=== PATIENT | female | born 1945 | race Caucasian/White ===

== ENCOUNTER 2018-12-29 06:00 | Inpatient (IN) | payer OTHER ==
[2018-12-17 12:47] LABS: URINE BILIRUBIN NEGATIVE (Negative); URINE BLOOD NEGATIVE (Negative); URINE CLARITY CLEAR; URINE COLOR YELLOW; URINE GLUCOSE-RANDOM* NEGATIVE (Negative); URINE KETONES NEGATIVE (Negative); URINE LEUKOCYTES-REFLEX NEGATIVE (Negative); URINE NITRITE-REFLEX NEGATIVE (Negative); URINE PROTEIN (DIPSTICK) NEGATIVE (Negative); URINE SPECIFIC GRAVITY <= 1.005 (1.005-1.035); URINE UROBILINOGEN 0.2 E.U./dl (0.2-1.0)
[2018-12-17 12:54] LABS: ALBUMIN 4.2 g/dL (3.4-5.0); CALCIUM 9.5 mg/dL (8.5-10.1); CREATININE 0.6 mg/dL (0.6-1.0); POTASSIUM 4.4 mmol/L (3.5-5.1)
[2018-12-17 13:00] LABS: PROTIME 10.4 Seconds (9.3-11.4)
[2018-12-17 13:24] LABS: HEMATOCRIT 37.5 % (37.0-47.0); HEMOGLOBIN 12.6 gm/dL (12.0-15.0); MCH 34.2 pg (26.0-34.0); MCHC 33.5 g/dL (28.0-37.0); MCV 102.3 fL (80.0-100.0); RBC 3.67 mil/uL (4.20-5.00); RDW 11.8 % (10.5-14.5); WBC 4.9 thou/uL (4.0-11.0)
--- NOTE | 2018-12-19 12:13 | EKG ---
[address] [address] ELECTROCARDIOGRAM REPORT Name: GERRY LOVETT Room #: PRE IN M..#: [id number] Admission: Attend Phys: Macario Shell MD Discharge: Date of : 41 Report #: [id number] THIS REPORT FOR: //name// [facility] Test Date: 2018-12-17 Test Time: 12:44:00 Pat Name: GERRY LOVETT Department: Room: Gender: [employer] Location Manager: shila : 1945 Requested By: Macario Shell Order Number: [id number] MD: Nitish Mei Measurements Intervals [place] Rate: 63 P: 36 DE: 165 QRS: -34 QRSD: 102 T: 28 QT: 428 QTc: 439 Interpretive Statements Sinus rhythm Left axis deviation No previous ECG available for comparison Electronically Signed On 12-19-2018 12:12:56 [employer] INST[employer] by Nitish Mei [email or web address] <ELECTRONICALLY SIGNED> By: Nitish Mei MD 12/19/18 1212 1244 1244 Nitish Mei MD /EPI
[~2018-12-29] VITALS: Ht 152.4 cm; Wt 74.4 kg
[~2018-12-29 06:00] MED LIST: BUPROPION XL300 MG PO; CALCIUM + VITA1 EACH PO; FLONASE 0.05%50 MCG NARES; GLUCOSAMINE &1 EACH PO; HYDROXYCHLOROQ200 M1 PO; LEXAPRO 10 MG T10 MG PO; MUPIROCIN15 GM TOP; ROSUVASTATIN CA20 MG PO; TRIAMCINOLONE A15 G1 TOP; TURMERIC500 M2 PO; VOLTAREN GEL 1100 GM TOP; ZESTRIL20 MG PO
[2018-12-29 07:23] VITALS: BP 134/67
--- NOTE | 2018-12-29 12:41 | NUR ---
PT ARRIVED TO UNIT AT 1100 ALERT XS4. NO PAIN OR RESP DISTRESS. AND DAUGHTER AT BEDSIDE. RIGHT KNEE WITH POLAR PACK AND PICCO DRESSING INTACT. GRABIEL SURESH AND SCD'S ON. ADMISSION PAPERWORK COMPLETED. DIET ORDER IN COMPUTER. PT DRINKING FLUIDS
[2018-12-29 15:31] VITALS: BP 118/64
[2018-12-29 21:23] VITALS: BP 131/61
[2018-12-30 01:01] VITALS: BP 137/66
--- NOTE | 2018-12-30 03:27 | NUR ---
Assumed pt care at 1900. Pt is A/OX4,VSS. Up with AX1,GB/RW to the bathroom without problems voiced, WBAT. Denies pain on assessment,polar pack in place. JANI dsg in place C/D/I. Fall precautions in place,calls approp. Dtr at the bedside for the night. Call light/personal items within reach.Will continue to monitor pt.
[2018-12-30 05:11] VITALS: BP 128/64
[2018-12-30 05:26] LABS: HEMATOCRIT 31.6 % (37.0-47.0); HEMOGLOBIN 10.6 gm/dL (12.0-15.0); MCH 34.1 pg (26.0-34.0); MCHC 33.5 g/dL (28.0-37.0); MCV 101.7 fL (80.0-100.0); RBC 3.11 mil/uL (4.20-5.00); RDW 11.7 % (10.5-14.5); WBC 7.9 thou/uL (4.0-11.0)
[2018-12-30 08:01] VITALS: BP 101/57
--- NOTE | 2018-12-30 10:17 | NUR ---
assessment-PT LIVES AT HOME WITH HER WHO WORKS A LOT AND BUILDS HANDICAPPED ACCESSIBLE HOMES. DTR HELPS WITH CLEANING. PT DOES COOKING AND LAUNDRY. THEY HAVE 3 CHILDREN IN THE AREA. PT HAS HER [facility]PT AP[facility] AT [facility] [place]. PT HAS A ROLLER WALKER AT HOME ALREADY. DTR AT BEDSIDE AND WILL ASSIST PT TODAY.
[2018-12-30] MEDS ORDERED: ASPIR 8181 MG PO (12:29)
[2018-12-30] MEDS ORDERED: NEURONTIN 300300 M1 PO (12:29)
--- NOTE | 2018-12-30 14:57 | O ---
[facility] [place] [address] OPERATIVE REPORT Name: GERRY LOVETT Room #: 438-P ADM IN M.R.#: [id number] Admission: 12/29/18 Attend Phys: Macario Shell MD Discharge: Date of : 41 Report #: [id number] THIS REPORT FOR: //name// CC: Maggie Varghesecarlosmarquita Macario Shell DATE OF SERVICE: 12/29/2018 PREOPERATIVE DIAGNOSIS: Right knee rheumatoid arthritis. POSTOPERATIVE DIAGNOSIS: Right knee rheumatoid arthritis. PROCEDURE: Right total knee arthroplasty using Navio robotic assistance. SURGEON: Macario Shell MD. PHYSICAL PLANT MANAGER: Duyen George PA-C. INDICATIONS FOR PHYSICAL PLANT MANAGER: Throughout the case, extensive retraction and manipulation of the knee was required. This was afforded to me by my assistant professor of anthropology. ANESTHESIA: LMA with an adductor canal block. IMPLANTS: [employer] size 5 narrow Legion cobalt chrome posterior stabilized femur, size 3 tibia, size 13 polyethylene and a size 32 patella. TOURNIQUET TIME: 50 minutes. ESTIMATED BLOOD LOSS: 25 mL. COMPLICATIONS: None. SPECIMENS: None. CONDITION UPON LEAVING THE OPERATING ROOM: Stable. INDICATIONS FOR PROCEDURE: The patient is a 73-year-old female with right knee rheumatoid arthritis. She had failed conservative measures for this and after discussion with her, she elected for right total knee arthroplasty. DESCRIPTION OF PROCEDURE: Risks, benefits, alternatives, complications were discussed in detail with the patient including, but not limited to risk of anesthesia, risk of damage to nerves, arteries, blood vessels, risk for infection, bleeding, risk for continued knee pain, need for reoperation. Informed consent was obtained from the patient. Right knee was appropriately marked in the preoperative holding area. Adductor canal block was placed by [facility] [address] [place] [address] OPERATIVE REPORT Name: GERRY LOVETT Room #: 438-P [facility] IN M.R.#: [id number] Admission: 12/29/18 Attend Phys: Macario Shell MD Discharge: Date of : 41 Report #: [id number] anesthesia. IV Ancef was given for preoperative antibiotics. She was brought to the operating room and placed in supine position on operating room table. LMA anesthesia was induced without complication. Tourniquet was placed on the right thigh. Right lower extremity was prepped and draped in normal sterile fashion. Timeout was performed properly identifying the patient and procedure as well as instrumentation. All in the operating room were in agreement. Right lower extremity was exsanguinated, tourniquet was inflated. Tourniquet time is 50 minutes. Standard midline approach to knee was made with 10 blade through the skin. Dissection was taken down sharply to the fascia and deep flaps were developed medially and laterally. Fresh 10-blade was used to make a medial parapatellar arthrotomy and the knee was inspected. There was severe medial and patellofemoral rheumatoid arthritis. Reference pins were placed in the femur and the tibia and the knee was then digitally mapped using the [employer] robotic system. We sized the size 5 femur and a size 3 tibia with an 11 spacer. After acceptance of the intraoperative plan, the distal femoral cut was made with a Navio matthias. The 4-in-1 cutting block was placed. Anterior, posterior and chamfer cuts were made on the femur. Attention was turned to the tibia. Remainder of the menisci removed with Bovie cautery. Tibial resection guide was pinned in place using the Navio for placement. After this, flexion and extension gaps were checked and found to have good balance in flexion and extension both medially and laterally. Tibia was sized, found to be a size 3. Size 3 tibial trial was placed, pinned and punched. Size 5 femoral trial was placed and the box cut was made. This was then trialed with an 11 and then a 12 polyethylene. The 12 polyethylene demonstrated good balance medially and laterally throughout range of motion about 2 mm of laxity and it was felt that we would end up with either a 12 or 13 poly after the final implant. After this, trial components were removed. Bony ends were thoroughly irrigated with normal saline. A final size 3 tibia, size 5 Legion cobalt chrome posterior stabilized femur and a size 32 patella were cemented in place using standard cementation techniques. While the cement cured, a periarticular injection consisting of morphine, ropivacaine, epinephrine, Toradol was placed around the knee joint capsule. After the cement cured, tourniquet was deflated. Hemostasis was obtained with Bovie cautery. The knee was then trialed with a 12 and then a 13 polyethylene. The 13 had a better fit and so a final 13 polyethylene was placed. A gram of vancomycin was placed deep in the joint. Fascia was closed with 0 Vicryl, skin was closed with 2-0 Vicryl, 3-0 Monocryl. Dermabond and a JANI dressing was applied. The patient tolerated this procedure well and went to recovery room under care of anesthesia postoperatively. <ELECTRONICALLY SIGNED> By: Macario Shell MD 12/30/18 1457 0942 1021 Macario Shell MD /nt
[2018-12-30 15:30] VITALS: BP 101/57
--- NOTE | 2018-12-30 16:15 | NUR ---
Assumed care of pt at 0700. Pt a&ox4. Pain controlled with prn pain meds. Polar pack in place. Family at bedside. Pt worked with physical therapy. Fall precautions in place. Discharging to home.
== END 2018-12-30 16:15 | disposition home or self-care (01) | DRG 470 ==
LOC: 4S 06:00 → TBA 06:00 → 4S 10:44 → PRE 11:52 → ENTRNSPT 12-30 16:12 → 4S 12-30 16:15
PROVIDERS: ADMIT Orthopaedic Surgery
PROC: 8E0Y0CZ Robotic Assisted Procedure of Lower Extremity, Open Approach (ICD-10-PCS; principal; 2018-12-29)
PROC: 0SRC0J9 Replacement of Right Knee Joint with Synthetic Substitute, Cemented, Open Approach (ICD-10-PCS; principal; 2018-12-29)
DX: M17.0 Bilateral primary osteoarthritis of knee (principal); M06.861 Other specified rheumatoid arthritis, right knee; G89.29 Other chronic pain; E78.00 Pure hypercholesterolemia, unspecified; M81.0 Age-related osteoporosis without current pathological fracture; F32.9 Major depressive disorder, single episode, unspecified; Z87.891 Personal history of nicotine dependence; Z79.899 Other long term (current) drug therapy; Z90.710 Acquired absence of both cervix and uterus; Z90.89 Acquired absence of other organs; Z88.8 Allergy status to other drugs, medicaments and biological substances; Z91.048 Other nonmedicinal substance allergy status; Z83.3 Family history of diabetes mellitus; Z81.8 Family history of other mental and behavioral disorders; Z82.5 Family history of asthma and other chronic lower respiratory diseases; Z84.89 Family history of other specified conditions
CPT/HCPCS: 10102; 50010; 50101; 50415; 50954; 51130; 51225; 51320; 52001; 52282; 53000; 53078; 53364; 54118; 56527; 56528; 57103; 57110; 57127; 57179; 62110; 62900; 64042; 70005

== ENCOUNTER 2019-01-04 12:01 | Inpatient (IN) | payer OTHER ==
[~2019-01-04] VITALS: Ht 162.6 cm; Wt 76.2 kg
[~2019-01-04 12:01] MED LIST changes: +ASPIR 8181 MG PO; +NEURONTIN 300300 M1 PO
[2019-01-04 12:02] VITALS: BP 105/54
[2019-01-04 12:49] LABS: BASOPHILS 1.3 % (0.0-2.0); EOSINOPHILS 3.6 % (0.0-3.0); HEMATOCRIT 28.1 % (37.0-47.0); HEMOGLOBIN 9.6 gm/dL (12.0-15.0); LYMPHOCYTES 13.7 % (24.0-44.0); MCH 34.3 pg (26.0-34.0); MCHC 34.2 g/dL (28.0-37.0); MCV 100.2 fL (80.0-100.0); MONOCYTES 8.8 % (1.0-8.0); PLATELET COUNT 268 thou/uL (150-400); POLYS 72.6 % (36.0-66.0); RBC 2.81 mil/uL (4.20-5.00); RDW 11.8 % (10.5-14.5); WBC 5.5 thou/uL (4.0-11.0)
[2019-01-04 12:58] LABS: CREATININE 0.7 mg/dL (0.6-1.0); POTASSIUM 3.4 mmol/L (3.5-5.1)
[2019-01-04] MEDS ORDERED: MS CONTIN15 MG PO (13:26)
[2019-01-04] MEDS ORDERED: PERCOCET 5-3251 EACH PO (13:26)
[2019-01-04 13:38] VITALS: BP 109/53
[2019-01-04 14:18] VITALS: BP 102/50
--- NOTE | 2019-01-04 15:00 | H ---
[facility] [place] [address] HISTORY AND PHYSICAL Name: GERRY LOVETT Room #: 456-P ADM IN M.R.#: [id number] Admission: 01/04/19 Attend Phys: Nickolas Alvarez MD Discharge: Date of : 41 Report #: [id number] THIS REPORT FOR: //name// CC: [facility] physician/PCP Nickolas Alvarez CHIEF COMPLAINT: Painful and weak right total knee arthroplasty and fever, nausea and vomiting. HISTORY OF PRESENT ILLNESS: This frail, but healthy 73-year-old female underwent right total knee arthroplasty 6 days ago. At that time, she did quite nicely. She had minimal pain. She was able to advance activity and had started ambulation with a walker and was making good progress. She was discharged home on routine medications and seemed to have no problems. Over the past 4 days, she has had more significant problems with some generalized pain and swelling about the knee and thigh. She also has some weakness with dorsiflexion of the right foot. She also has had some abdominal distress with nausea and vomiting and some upper respiratory congestion with what she describes as occasional sputum production. She notes she has had an occasional fever of 101. She called me today describing some of the symptoms and I suggested follow up in the Emergency Department with probable hospital readmission for evaluation. Her previous medical history and family history are noncontributory. Today at the time of my evaluation, she is alert and oriented and does not seem to be in significant discomfort. Her temperature is 99 and her O2 sats are 95-100 and she seems to have no problem with shortness of breath or cough or sputum production at this time. She is not having any nausea. She has no complaints of discomfort involving the neck, back or upper extremities and seems to have full and normal movement in those areas. The right lower extremity is in a nicely placed dressing, which was removed. The JANI dressing against the skin appears to be clean and dry and the surrounding skin is not particularly warm nor significantly erythematous. I feel she probably does have a very minimal knee effusion, but demonstrates satisfactory movement with only mild discomfort. The knee seems to be functioning well and my objective assessment is that it is unlikely there is any infection nor any other significant problems. The findings are most consistent with simple normal postoperative inflammation. There is some generalized bruising about the thigh, probably related to the tourniquet. The calf is not bruised nor significantly tender. There is some minor edema down to the foot and ankle. She has difficulty with dorsiflexion of the foot and ankle suggesting a peroneal nerve palsy. Vascular status appears to be intact. The opposite left lower extremity reveals only minor ankle and foot edema, but no other significant abnormality. Her lab studies are notable for a white count of 5500. Her other labs are [address] [address] HISTORY AND PHYSICAL Name: GERRY LOVETT Room #: 456-P ADM IN M.R.#: [id number] Admission: 01/04/19 Attend Phys: Nickolas Alvarez MD Discharge: Date of : 41 Report #: [id number] essentially normal. Her sed rate is pending at the time of this dictation. She did have an ultrasound study of the right calf, which reveals no evidence of DVT. Chest x-ray reveals mild atelectasis in the right mid lung. X-rays of the right knee reveal good position of total knee components which appear to be stable and well seated. In summary, I am uncertain why she feels poorly in general and weak in general. I am concerned she may have atelectasis or pneumonitis which may be her primary issue. She seems to have some GI irritability, but no abdominal tenderness and nothing which would suggest ileus or significant abdominal problems. The right knee is only mildly puffy and is not particularly inflamed or red. It seems unlikely to me that she has an infection, although we have discussed this issue at some length. I have also discussed the issue with Dr. Shell, her primary surgeon. We both agreed that the best approach is probably to go ahead with hospital admission and careful observation for 24 hours. I think we will see whether her pulmonary issues are more significant. I do not think she needs an antibiotic at this time with regard to the knee and did not find enough evidence of a significant knee effusion to warrant knee aspiration. I will defer to Dr. Shell when he sees her either later tonight or tomorrow. I think we can proceed with therapy and activity and we will see whether we are making sufficient progress to allow outpatient management or not. <ELECTRONICALLY SIGNED> By: Yared Mercedes MD 01/04/19 1500 1450 1500 Yared Mercedes MD /nt
[2019-01-04 16:16] VITALS: BP 120/50
[2019-01-04 19:33] VITALS: BP 108/57
[2019-01-05 00:35] VITALS: BP 108/57
[2019-01-05 05:05] LABS: HEMATOCRIT 24.8 % (37.0-47.0); HEMOGLOBIN 8.6 gm/dL (12.0-15.0); MCH 34.8 pg (26.0-34.0); MCHC 34.6 g/dL (28.0-37.0); MCV 100.5 fL (80.0-100.0); RBC 2.47 mil/uL (4.20-5.00); RDW 11.9 % (10.5-14.5); WBC 5.2 thou/uL (4.0-11.0)
[2019-01-05 05:09] LABS: CALCIUM 8.9 mg/dL (8.5-10.1); CREATININE 0.6 mg/dL (0.6-1.0); POTASSIUM 3.8 mmol/L (3.5-5.1)
[2019-01-05 09:10] VITALS: BP 141/74
[2019-01-05 14:56] VITALS: BP 136/73
[2019-01-05 17:02] LABS: CALCIUM 8.9 mg/dL (8.5-10.1); CREATININE 0.6 mg/dL (0.6-1.0); POTASSIUM 3.9 mmol/L (3.5-5.1)
[2019-01-05 19:32] VITALS: BP 151/80
[2019-01-05 20:02] LABS: URINE BILIRUBIN NEGATIVE (Negative); URINE BLOOD NEGATIVE (Negative); URINE CLARITY CLEAR; URINE COLOR YELLOW; URINE GLUCOSE-RANDOM* NEGATIVE (Negative); URINE KETONES NEGATIVE (Negative); URINE LEUKOCYTES-REFLEX NEGATIVE (Negative); URINE NITRITE-REFLEX NEGATIVE (Negative); URINE PROTEIN (DIPSTICK) NEGATIVE (Negative); URINE SPECIFIC GRAVITY 1.015 (1.005-1.035); URINE UROBILINOGEN 0.2 E.U./dl (0.2-1.0)
[2019-01-06 06:30] LABS: ALBUMIN 2.8 g/dL (3.4-5.0); CALCIUM 8.5 mg/dL (8.5-10.1); CREATININE 0.5 mg/dL (0.6-1.0); TOTAL BILIRUBIN 0.8 mg/dL (<0.1-1.0)
[2019-01-06 07:21] VITALS: BP 142/65
[2019-01-06 08:19] LABS: TSH 1.181 uIU/mL (0.358-3.740)
[2019-01-06] MEDS ORDERED: MOBIC15 MG PO ×2 (10:19→14:42)
[2019-01-06 13:47] VITALS: BP 142/65
--- NOTE | 2019-01-06 20:38 | HC ---
[facility] [place] [address] CONSULTATION Name: GERRY LOVETT Room #: 456-P [facility] IN ..#: [id number] Admission: 01/04/19 Attend Phys: Nickolas Alvarez MD Discharge: 01/06/19 Date of : 41 Report #: [id number] THIS REPORT FOR: //name// CC: [facility] physician/PCP Nickolas Alvarez DATE OF SERVICE: 01/05/2019 INFECTIOUS DISEASE CONSULTATION REASON FOR CONSULTATION: I was asked to evaluate concerning low-grade fever postop right total knee arthroplasty. HISTORY OF PRESENT ILLNESS: A 73-year-old with underlying history of rheumatoid arthritis, on Plaquenil, who underwent a right total knee arthroplasty one week ago. There were no intraoperative complications. Procedure was right total knee arthroplasty using Navio robotic assistance. Postoperatively, she has had a significant amount of swelling and increased pain. She developed footdrop. Developed a low-grade fever. She has had a cough with difficulty expectorating. No pleuritic chest pain. No chills or sweats. Because of her increased pain, immobility, and low-grade fever, she was hospitalized for further evaluation. REVIEW OF SYSTEMS: She has been constipated. No dysuria or frequency. No other rashes. No adenopathy. Other joints have been stable. REVIEW OF SYSTEMS: A 10-point review of system was negative other than what is described above. ALLERGIES: TYLENOL, TAPE, EMETICON. MEDICATIONS: Morphine, oxycodone, calcium carbonate, glucosamine, hydroxychloroquine, triamcinolone topical, Flonase nasal spray, lisinopril, bupropion, rosuvastatin, Lexapro, Voltaren cream, mupirocin topical, turmeric. PAST MEDICAL HISTORY: Hypertension, hyperlipidemia, depression and anxiety, obstructive sleep apnea, hiatal hernia, gastroesophageal reflux, tonsillectomy, hysterectomy, left strabismus surgery, EGD and colonoscopy. FAMILY HISTORY: Noncontributory. SOCIAL HISTORY: Past smoker. Alcohol: 2-3 glasses of wine a day. PHYSICAL EXAMINATION: VITAL SIGNS: Afebrile and hemodynamically stable. GENERAL: She is alert, cooperative and pleasant, in no acute distress. SKIN: Ecchymosis to the right thigh. No other rashes identified. [address] [address] CONSULTATION Name: GERRY LOVETT Room #: 456-P [facility] IN ..#: [id number] Admission: 01/04/19 Attend Phys: Nickolas Alvarez MD Discharge: 01/06/19 Date of : 41 Report #: [id number] EXTREMITIES: The right lower extremity had 1+ edema in the lower leg with 2+ swelling in the thigh, mostly edema. Incision was with dressing dry and intact. No surrounding cellulitis. Limited range of motion due to pain. She has a foot drop on the right. Sensation was intact to touch. Pulses were normal in the foot. Capillary refill normal. EYES: Without scleral icterus. MOUTH: Without mucositis. CHEST: Clear. HEART: Regular. ABDOMEN: Soft and nontender. NECK: Supple. BACK: Nontender. GENITAL AND RECTAL: Not performed. NEUROLOGIC: Cranial nerves were intact. Strength as noted with normal strength in the upper extremities and the left leg. PSYCHIATRIC: Mood normal. LABORATORY STUDIES: Sodium 136, potassium 3.9, bicarbonate 29, creatinine 0.6. Blood cultures are negative to date. Hemoglobin 8.6, white count 5.2, platelet count 258,000. Sedimentation rate 81. CRP 81. X-ray of the knee, well positioned total knee arthroplasty. Chest x-ray, right mid lung atelectasis. IMPRESSION: A 73-year-old with low-grade fever 1 week postop from right total knee arthroplasty. She has ecchymosis to the thigh. I am suspecting associated hematoma. She does have joint effusion as noted on her x-ray. She has underlying rheumatoid arthritis. So far no evidence externally for total knee arthroplasty infection. Her white count is normal. Inflammatory markers are elevated, but the patient has underlying rheumatoid arthritis and is 1 week postop. RECOMMENDATIONS: We will continue observation off antibiotics. Agree with pulmonary toilet and we will monitor her white count and temperature curve while here in the hospital. 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 We will also obtain liver function tests. <ELECTRONICALLY SIGNED> By: Hernandez Kasper MD 01/06/198 1724 8866 Hernandez Kasper MD /nt
== END 2019-01-06 14:57 | disposition home health service (06) | DRG 864 ==
LOC: ER 12:01 → 4W 14:21 → ER 14:21 → EROBS 14:25 → 4W 14:25 → ENTRNSPT 01-06 14:46 → 4W 01-06 14:57
PROVIDERS: Emergency Medicine; Hospitalist; Specialist; ADMIT Hospitalist
DX: R50.82 Postprocedural fever (principal); J98.11 Atelectasis; E87.1 Hypo-osmolality and hyponatremia; I10 Essential (primary) hypertension; Z96.651 Presence of right artificial knee joint; E78.5 Hyperlipidemia, unspecified; F32.9 Major depressive disorder, single episode, unspecified; F41.9 Anxiety disorder, unspecified; K21.9 Gastro-esophageal reflux disease without esophagitis; G47.33 Obstructive sleep apnea (adult) (pediatric); M06.9 Rheumatoid arthritis, unspecified; D53.9 Nutritional anemia, unspecified; E87.8 Other disorders of electrolyte and fluid balance, not elsewhere classified; M21.379 Foot drop, unspecified foot; E87.6 Hypokalemia; Z88.8 Allergy status to other drugs, medicaments and biological substances; Z91.040 Latex allergy status; Z79.899 Other long term (current) drug therapy; Z90.710 Acquired absence of both cervix and uterus; Z87.891 Personal history of nicotine dependence
CPT/HCPCS: 10040